=== PATIENT | male | born 1940 | race Caucasian/White ===

== ENCOUNTER → 2017-02-01 | Outpatient (CLI) | payer MEDICARE ==
[~2017-02-01] MED LIST: ALLO300T PO; ATEN25TA PO; CLIN300C93 PO; DIGO125T PO; FURO40TA6 PO; HYDR-3138 PO; MACI10TA PO; METF100010 PO; POTA10TA31 PO; POTA10TA5 PO; TORS20TA PO; TORS20TA2 PO; WARF10TA6 PO; WARF7.5T6 PO
== END | disposition home or self-care (01) ==
LOC: CFH 10:20
PROVIDERS: ATTEND Internal Medicine Cardiovascular Disease
DX: I08.3 Combined rheumatic disorders of mitral, aortic and tricuspid valves (principal); I48.91 Unspecified atrial fibrillation
CPT/HCPCS: 93306

== ENCOUNTER → 2017-06-01 | Outpatient (CLI) | payer MEDICARE ==
[~2017-06-01] MED LIST changes: +CLIN300C8 PO; -CLIN300C93 PO; -HYDR-3138 PO; +HYDR-3237 PO
== END | disposition home or self-care (01) ==
LOC: WOUND 09:17
PROVIDERS: ATTEND Internal Medicine
DX: S51.801A Unspecified open wound of right forearm, initial encounter (principal); E11.9 Type 2 diabetes mellitus without complications; G47.30 Sleep apnea, unspecified; I48.91 Unspecified atrial fibrillation; I27.29 Other secondary pulmonary hypertension; Z79.01 Long term (current) use of anticoagulants; Z95.0 Presence of cardiac pacemaker; Z98.49 Cataract extraction status, unspecified eye; Z87.891 Personal history of nicotine dependence; X58.XXXA Exposure to other specified factors, initial encounter; Y93.89 Activity, other specified; Y92.89 Other specified places as the place of occurrence of the external cause; Y99.8 Other external cause status
CPT/HCPCS: G0463; WOU0463

== ENCOUNTER 2018-03-16 11:58 | Inpatient (IN) | payer MEDICARE ==
[~2018-03-16] VITALS: Ht 195.6 cm; Wt 91.9 kg
[~2018-03-16 11:58] MED LIST changes: +WARF10TA43 PO; -WARF10TA6 PO; +WARF7.5T46 PO; -WARF7.5T6 PO
[2018-03-16] MEDS ORDERED: SODIUM CHLORIDE 0.9% 1,000 ML IV ONE (12:11)
[2018-03-16] MEDS ORDERED: AMOX-291 PO (12:55)
[2018-03-16] MEDS ORDERED: FAMC500T33 PO (12:55)
[2018-03-16 13:14] LABS: ANION GAP 11 mmol/L (5-15); CALCIUM 8.4 mg/dL (8.5-10.1); CHLORIDE 105 mmol/L (98-107)
[2018-03-16 13:17] LABS: ALANINE AMINOTRANSFERASE 74 U/L (12-78); CREATININE 3.12 mg/dL (0.7-1.3)
[2018-03-16 13:19] LABS: PARTIAL THROMBOPLASTIN TIME 64 Seconds (25-31)
[2018-03-16 13:20] LABS: TROPONIN I 0.905 ng/mL (0.000-0.045)
[2018-03-16 13:30] LABS: INTERNATIONAL NORMALIZED RATIO > 12.00 (0.93-1.1); PROTHROMBIN TIME 125.4 Seconds (9.6-11.5)
[2018-03-16] MEDS ORDERED: ASPIRIN 81 MG TABLET CHEW PO ONE (13:30)
[2018-03-16] MEDS ORDERED: PHYTONADIONE 10 MG/ML, 1ML IM ONE (13:30)
[2018-03-16 13:31] LABS: MD YES; MEAN CORPUSCULAR HGB CONC 32.9 g/dL (33.2-36.2); MEAN PLATELET VOLUME 10.2 fL (7.4-10.4); PLATELET COUNT 301 x10^3/uL (130-400); RED CELL DISTRIBUTION WIDTH 24.4 % (9.4-14.8)
[2018-03-16 13:33] LABS: ALKALINE PHOSPHATASE 121 U/L (45-117); BAND#(MANUAL) 0.53 x10^3/uL; BANDS%(MANUAL) 2 % (0-7); BILIRUBIN,TOTAL 3.6 mg/dL (0.2-1.0); CREATINE KINASE, TOTAL 1746 U/L (39-308); LYMPH#(MANUAL) 0.79 x10^3/uL (1-3.4); LYMPHS% (MANUAL) 3 % (22-44); MONOS#(MANUAL) 1.05 x10^3/uL (0.3-2.7); MONOS% (MANUAL) 4 % (2-9); REACTIVE LYMPHS # (MANUAL) 0.26 x10^3/uL (0-0); REACTIVE LYMPHS % (MANUAL) 1 % (0-0); SEG#(MANUAL) 23.67 x10^3/uL (1.8-6.8); SEGS% (MANUAL) 90 % (42-75); TOTAL PROTEIN 6.2 g/dL (6.4-8.2)
[2018-03-16 13:34] LABS: ANISOCYTOSIS 2+; MICROCYTOSIS 1+; POLYCHROMASIA 1+
[2018-03-16 13:36] LABS: <PLATELET ESTIMATE> ADEQUATE; LARGE PLATELETS 2+
[2018-03-16] MEDS ORDERED: SODIUM CHLORIDE 0.9% 1,000ML IVBOLUS ONE (14:00)
[2018-03-16] MEDS ORDERED: PHYTONADIONE 5 MG TABLET PO ONE (14:00)
[2018-03-16] MEDS ORDERED: SODIUM BICARBONATE 8.4% 150 MEQ in DEXTROSE 5% 1,000 ML IV SCH (14:00)
[2018-03-16] MEDS ORDERED: PIPERACILLIN/TAZO/PMX 3.375GM 50 ML IV ONE (14:00)
[2018-03-16] MEDS ORDERED: PIPERACILLIN/TAZO/PMX 3.375GM 50 ML ONE (14:17)
[2018-03-16] MEDS ORDERED: GLUCAGON 1 MG IM PRN (15:00)
[2018-03-16] MEDS ORDERED: POLYETHYLENE GLYCOL 17 GM PACKET PO PRN (15:00)
[2018-03-16] MEDS ORDERED: BISACODYL 10 MG SUPP PR PRN (15:00)
[2018-03-16] MEDS ORDERED: DEXTROSE 4 GM TAB.CHEW PO PRN (15:00)
[2018-03-16] MEDS ORDERED: DEXTROSE 50%, 50ML SYRINGE IVPush PRN (15:00)
[2018-03-16] MEDS ORDERED: hydrALAzine 20 MG/ML, 1ML IVPush PRN (15:00)
[2018-03-16 15:25] VITALS: BP 103/68
[2018-03-16] MEDS: SODIUM CHLORIDE 0.9% 1,000 ML IV SCH ×2 (16:43→23:10)
[2018-03-16] MEDS ORDERED: VANCOMYCIN 2,000 MG in SODIUM CHLORIDE 0.9% 500 ML IV SCH (17:00)
[2018-03-16] MEDS ORDERED: PHARMACOKINETIC CONSULTATION MC ONE ×2 (17:00→22:30)
[2018-03-16] MEDS ORDERED: PHARMACOKINETIC MONITORING MC PRN ×2 (17:00→22:30)
[2018-03-16] MEDS ORDERED: VANCOMYCIN PER PHARMACY MC PRN ×2 (17:00→22:00)
[2018-03-16] MEDS: INSULIN LISPRO 100 UNITS/ML, PEN SQ-INSULIN SCH ×2 (17:53→23:08)
[2018-03-16 18:53] LABS: ALBUMIN 2.8 g/dL (3.4-5.0); ANION GAP 12 mmol/L (5-15); CHLORIDE 109 mmol/L (98-107); CREATININE 2.94 mg/dL (0.7-1.3)
[2018-03-16 19:05] LABS: INTERNATIONAL NORMALIZED RATIO 11.1 (0.93-1.1); PROTHROMBIN TIME 109.1 Seconds (9.6-11.5)
[2018-03-16] MEDS ORDERED: PIPERACILLIN/TAZO 2.25 GM in SODIUM CHLORIDE 0.9% 50 ML IV SCH (20:30)
[2018-03-16 20:33] VITALS: BP 112/67
[2018-03-16] MEDS ORDERED: ACYCLOVIR 800 MG TABLET PO SCH (21:00)
[2018-03-16] MEDS ORDERED: LORazepam 2 MG/ML, 1ML IVPush ONE (21:30)
[2018-03-16] MEDS: SODIUM CHLORIDE FLUSH 10ML SYR IVF SCH (21:38)
[2018-03-16] MEDS: PIPERACILLIN/TAZO/PMX 2.25GM 50 ML IV SCH (23:08)
[2018-03-17 01:20] LABS: MEAN CORPUSCULAR VOLUME 75.9 fL (81-97); MEAN PLATELET VOLUME 10.1 fL (7.4-10.4); PLATELET COUNT 318 x10^3/uL (130-400); RED BLOOD COUNT 6.98 x10^6/uL (4.38-5.82)
[2018-03-17 01:26] LABS: ALANINE AMINOTRANSFERASE 78 U/L (12-78); ALBUMIN 2.9 g/dL (3.4-5.0); ANION GAP 10 mmol/L (5-15); CALCIUM 7.9 mg/dL (8.5-10.1); CHLORIDE 110 mmol/L (98-107); CREATININE 2.99 mg/dL (0.7-1.3)
[2018-03-17 01:33] LABS: MD YES
[2018-03-17 01:41] LABS: ANISOCYTOSIS 2+; BANDS%(MANUAL) 3 % (0-7); LYMPH#(MANUAL) 0.53 x10^3/uL (1-3.4); LYMPHS% (MANUAL) 2 % (22-44); MICROCYTOSIS 1+; MONOS#(MANUAL) 1.07 x10^3/uL (0.3-2.7); MONOS% (MANUAL) 4 % (2-9); POLYCHROMASIA 1+; REACTIVE LYMPHS # (MANUAL) 0.27 x10^3/uL (0-0); REACTIVE LYMPHS % (MANUAL) 1 % (0-0); SEG#(MANUAL) 24.03 x10^3/uL (1.8-6.8); SEGS% (MANUAL) 90 % (42-75)
[2018-03-17 01:42] LABS: <PLATELET ESTIMATE> ADEQUATE; ALKALINE PHOSPHATASE 109 U/L (45-117); BILIRUBIN,TOTAL 3.9 mg/dL (0.2-1.0); CHOL/HDL RATIO 6.1; CHOLESTEROL, TOTAL 92 mg/dL (140-239); CREATINE KINASE, TOTAL 1769 U/L (39-308); HDL CHOL % 16 % (26-37); HDL CHOLESTEROL (DIRECT) 15 mg/dL (40-60); LARGE PLATELETS 1+; LDL CHOLESTEROL,CALCULATED 50 mg/dL (54-169); LDL/HDL RATIO 3.3 (0.5-3.0); TOTAL PROTEIN 6.1 g/dL (6.4-8.2); TOXIC GRAN 1+; TRIGLYCERIDES 136 mg/dL (50-200); VLDL CHOLESTEROL 27 mg/dL (0-25)
[2018-03-17 01:45] LABS: INTERNATIONAL NORMALIZED RATIO 5.16 (0.93-1.1); PROTHROMBIN TIME 51.5 Seconds (9.6-11.5)
[2018-03-17 01:59] VITALS: BP 112/60
[2018-03-17] MEDS: SODIUM CHLORIDE 0.9% 1,000 ML IV SCH ×2 (03:20→09:50)
[2018-03-17 03:24] LABS: TROPONIN I 0.784 ng/mL (0.000-0.045)
[2018-03-17] MEDS: PIPERACILLIN/TAZO/PMX 2.25GM 50 ML IV SCH ×4 (04:53→21:04)
[2018-03-17 05:08] LABS: MICROSCOPIC INDICATED
[2018-03-17 05:17] LABS: AMPHETAMINE SCREEN, URINE Negative (Negative); BARBITURATE SCREEN, URINE Negative (Negative); BENZODIAZEPINE SCREEN, URINE Negative (Negative); CANNABINOID SCREEN, URINE Negative (Negative); COCAINE SCREEN, URINE Negative (Negative); METHADONE SCREEN, URINE Negative (Negative); OPIATE SCREEN, URINE Negative (Negative)
[2018-03-17 05:20] LABS: CULTURE INDICATED? YES
[2018-03-17] MEDS: INSULIN LISPRO 100 UNITS/ML, PEN SQ-INSULIN SCH ×4 (07:00→21:00)
[2018-03-17 07:54] VITALS: BP 112/62
[2018-03-17] MEDS: ACYCLOVIR 800 MG TABLET PO SCH ×4 (09:48→21:05)
[2018-03-17] MEDS: SODIUM CHLORIDE FLUSH 10ML SYR IVF SCH ×2 (09:48→21:00)
[2018-03-17] MEDS ORDERED: PHARMACY MAY ADJ FOR RENAL FX MC PRN (12:00)
[2018-03-17 14:53] VITALS: BP 104/63
[2018-03-17] MEDS ORDERED: METOPROLOL 1 MG/ML, 5ML IVPush PRN (15:00)
[2018-03-17 20:47] VITALS: BP 117/59
[2018-03-17] MEDS: ACETAMINOPHEN 325 MG TABLET PO PRN (21:04)
[2018-03-17 22:02] LABS: BILIRUBIN, DIRECT 0.9 mg/dL (0.1-0.2)
[2018-03-17 22:03] LABS: BILIRUBIN,INDIRECT 2.1 mg/dL (0.0-2.0)
[2018-03-18] VITALS (8 sets, daily range): BP systolic 108–138; BP diastolic 54–69
[2018-03-18] MEDS: PIPERACILLIN/TAZO/PMX 2.25GM 50 ML IV SCH ×4 (04:12→23:09)
[2018-03-18 05:52] LABS: CHLORIDE 115 mmol/L (98-107)
[2018-03-18 05:56] LABS: MEAN CORPUSCULAR HGB CONC 32.9 g/dL (33.2-36.2); MEAN CORPUSCULAR VOLUME 76.2 fL (81-97); MEAN PLATELET VOLUME 9.7 fL (7.4-10.4); PLATELET COUNT 301 x10^3/uL (130-400); RED BLOOD COUNT 6.37 x10^6/uL (4.38-5.82); RED CELL DISTRIBUTION WIDTH 25.4 % (9.4-14.8)
[2018-03-18] MEDS: ACYCLOVIR 800 MG TABLET PO SCH ×5 (05:56→21:25)
[2018-03-18 06:05] LABS: ALANINE AMINOTRANSFERASE 64 U/L (12-78); ALBUMIN 2.5 g/dL (3.4-5.0); ALKALINE PHOSPHATASE 99 U/L (45-117); ANION GAP 8 mmol/L (5-15); BILIRUBIN,TOTAL 3.4 mg/dL (0.2-1.0); CREATINE KINASE, TOTAL 437 U/L (39-308); TOTAL PROTEIN 5.6 g/dL (6.4-8.2)
[2018-03-18 06:52] LABS: BASOPHILS # (AUTO) 0.05 x10^3/uL (0-0.1); BASOPHILS % (AUTO) 0 % (0-1); EOSINOPHILS # (AUTO) 0.05 x10^3/uL (0-0.4); EOSINOPHILS % (AUTO) 0 % (1-7); LYMPHOCYTES % (AUTO) 3 % (22-44); MD SCAN; MONOCYTES % (AUTO) 3 % (2-9); NEUTROPHILS # (AUTO) 18.34 x10^3/uL (1.8-6.8); NEUTROPHILS % (AUTO) 94 % (42-75)
[2018-03-18] MEDS: INSULIN LISPRO 100 UNITS/ML, PEN SQ-INSULIN SCH ×4 (07:00→21:24)
[2018-03-18 07:45] LABS: INTERNATIONAL NORMALIZED RATIO 2.42 (0.93-1.1); PROTHROMBIN TIME 24.5 Seconds (9.6-11.5)
[2018-03-18] MEDS: SODIUM CHLORIDE FLUSH 10ML SYR IVF SCH ×2 (10:21→21:25)
[2018-03-18] MEDS ORDERED: WARFARIN 5 MG TABLET PO-COUM SCH (18:00)
[2018-03-18] MEDS: VANCOMYCIN 2,000 MG in SODIUM CHLORIDE 0.9% 500 ML IV SCH (18:18)
[2018-03-18 19:39] LABS: INTERNATIONAL NORMALIZED RATIO 2.17 (0.93-1.1)
[2018-03-18] MEDS: ACETAMINOPHEN 325 MG TABLET PO PRN (21:25)
[2018-03-19] VITALS (13 sets, daily range): BP systolic 117–143; BP diastolic 53–73
[2018-03-19] MEDS: PIPERACILLIN/TAZO/PMX 2.25GM 50 ML IV SCH ×4 (04:45→22:56)
[2018-03-19] MEDS: ACYCLOVIR 800 MG TABLET PO SCH ×5 (04:45→22:52)
[2018-03-19 04:52] LABS: MEAN CORPUSCULAR HEMOGLOBIN 24.9 pg (27.5-34.5); MEAN CORPUSCULAR HGB CONC 32.5 g/dL (33.2-36.2); MEAN CORPUSCULAR VOLUME 76.6 fL (81-97); MEAN PLATELET VOLUME 9.6 fL (7.4-10.4); PLATELET COUNT 322 x10^3/uL (130-400); RED BLOOD COUNT 6.31 x10^6/uL (4.38-5.82)
[2018-03-19 04:53] LABS: INTERNATIONAL NORMALIZED RATIO 1.93 (0.93-1.1); PROTHROMBIN TIME 19.6 Seconds (9.6-11.5)
[2018-03-19 04:56] LABS: ALANINE AMINOTRANSFERASE 55 U/L (12-78); ALBUMIN 2.4 g/dL (3.4-5.0); ANION GAP 6 mmol/L (5-15); CALCIUM 8.1 mg/dL (8.5-10.1); CHLORIDE 115 mmol/L (98-107); CREATININE 1.81 mg/dL (0.7-1.3)
[2018-03-19 04:58] LABS: ALKALINE PHOSPHATASE 118 U/L (45-117); BILIRUBIN,TOTAL 3.2 mg/dL (0.2-1.0); TOTAL PROTEIN 5.7 g/dL (6.4-8.2)
[2018-03-19 05:08] LABS: MD YES
[2018-03-19 05:10] LABS: ANISOCYTOSIS 2+; BANDS%(MANUAL) 3 % (0-7); LYMPHS% (MANUAL) 6 % (22-44); MICROCYTOSIS 1+; MONOS#(MANUAL) 0.33 x10^3/uL (0.3-2.7); MONOS% (MANUAL) 2 % (2-9); POLYCHROMASIA 1+; SEG#(MANUAL) 14.86 x10^3/uL (1.8-6.8); SEGS% (MANUAL) 89 % (42-75)
[2018-03-19 05:11] LABS: <PLATELET ESTIMATE> ADEQUATE; LARGE PLATELETS 1+; TOXIC GRAN 1+
[2018-03-19] MEDS: INSULIN LISPRO 100 UNITS/ML, PEN SQ-INSULIN SCH ×4 (07:00→20:48)
[2018-03-19] MEDS: SODIUM CHLORIDE FLUSH 10ML SYR IVF SCH ×2 (09:15→20:44)
[2018-03-19] MEDS ORDERED: PHYTONADIONE 10 MG/ML, 1ML SQ ONE (10:30)
[2018-03-19] MEDS: SODIUM CHLORIDE 0.45% 1,000 ML IV SCH (11:38)
[2018-03-19 15:38] LABS: INTERNATIONAL NORMALIZED RATIO 1.93 (0.93-1.1); PROTHROMBIN TIME 19.6 Seconds (9.6-11.5)
[2018-03-20] VITALS (12 sets, daily range): BP systolic 107–134; BP diastolic 53–73
[2018-03-20] MEDS: ACYCLOVIR 800 MG TABLET PO SCH ×5 (04:44→21:13)
[2018-03-20] MEDS: PIPERACILLIN/TAZO/PMX 2.25GM 50 ML IV SCH ×4 (04:49→22:15)
[2018-03-20 05:23] LABS: HCT (SEDRATE) 49.6 % (39.2-51.8)
[2018-03-20 05:29] LABS: MEAN CORPUSCULAR HEMOGLOBIN 24.7 pg (27.5-34.5); MEAN CORPUSCULAR HGB CONC 32.4 g/dL (33.2-36.2); MEAN CORPUSCULAR VOLUME 76.4 fL (81-97); MEAN PLATELET VOLUME 9.4 fL (7.4-10.4); PLATELET COUNT 356 x10^3/uL (130-400); RED BLOOD COUNT 6.53 x10^6/uL (4.38-5.82); RED CELL DISTRIBUTION WIDTH 24.3 % (9.4-14.8)
[2018-03-20 05:35] LABS: ALBUMIN 2.4 g/dL (3.4-5.0); ALBUMIN 2.5 g/dL (3.4-5.0); ANION GAP 4 mmol/L (5-15); ANION GAP 5 mmol/L (5-15); CALCIUM 8.2 mg/dL (8.5-10.1); CALCIUM 8.5 mg/dL (8.5-10.1); CHLORIDE 116 mmol/L (98-107); CHLORIDE 117 mmol/L (98-107)
[2018-03-20 05:41] LABS: ALANINE AMINOTRANSFERASE 51 U/L (12-78); ALKALINE PHOSPHATASE 121 U/L (45-117); BILIRUBIN,TOTAL 3.4 mg/dL (0.2-1.0); CREATININE 1.31 mg/dL (0.7-1.3); TOTAL PROTEIN 5.9 g/dL (6.4-8.2)
[2018-03-20 05:46] LABS: ALANINE AMINOTRANSFERASE 50 U/L (12-78); ALKALINE PHOSPHATASE 123 U/L (45-117); BILIRUBIN, DIRECT 0.7 mg/dL (0.1-0.2); BILIRUBIN,INDIRECT 2.6 mg/dL (0.0-2.0); BILIRUBIN,TOTAL 3.3 mg/dL (0.2-1.0); CREATINE KINASE, TOTAL 85 U/L (39-308); CREATININE 1.33 mg/dL (0.7-1.3); INTERNATIONAL NORMALIZED RATIO 1.58 (0.93-1.1); PROTHROMBIN TIME 16.1 Seconds (9.6-11.5); TOTAL PROTEIN 5.7 g/dL (6.4-8.2)
[2018-03-20 05:52] LABS: BASOPHILS # (AUTO) 0.08 x10^3/uL (0-0.1); BASOPHILS % (AUTO) 1 % (0-1); EOSINOPHILS # (AUTO) 0.29 x10^3/uL (0-0.4); EOSINOPHILS % (AUTO) 2 % (1-7); LYMPHOCYTES # (AUTO) 0.52 x10^3/uL (1-3.4); LYMPHOCYTES % (AUTO) 3 % (22-44); MD SCAN; MONOCYTES # (AUTO) 0.47 x10^3/uL (0.2-0.8); MONOCYTES % (AUTO) 3 % (2-9); NEUTROPHILS # (AUTO) 14.57 x10^3/uL (1.8-6.8); NEUTROPHILS % (AUTO) 92 % (42-75)
[2018-03-20] MEDS: INSULIN LISPRO 100 UNITS/ML, PEN SQ-INSULIN SCH ×4 (07:00→21:11)
[2018-03-20] MEDS: SODIUM CHLORIDE 0.45% 1,000 ML IV SCH (09:13)
[2018-03-20] MEDS: SODIUM CHLORIDE FLUSH 10ML SYR IVF SCH ×2 (09:14→21:13)
[2018-03-20] MEDS: ALBUTEROL/IPRATROPIUM 2.5MG/0.5MG, 3 ML NPPB SCH ×3 (11:00→19:51)
[2018-03-20] MEDS ORDERED: ALBUTEROL/IPRATROPIUM 2.5MG/0.5MG, 3 ML NPPB PRN (11:00)
[2018-03-20] MEDS ORDERED: ALBUTEROL/IPRATROPIUM 2.5MG/0.5MG, 3 ML NEB SCH (11:00)
[2018-03-20] MEDS: DEXTROSE 5% 1,000 ML IV SCH ×2 (11:56→11:59)
[2018-03-20] MEDS: VANCOMYCIN 2,000 MG in SODIUM CHLORIDE 0.9% 500 ML IV SCH (17:50)
[2018-03-20] MEDS: FUROSEMIDE 20 MG/2 ML IV SCH (17:51)
[2018-03-20] MEDS: METOPROLOL TARTRATE 25 MG TABLET PO SCH (18:02)
[2018-03-20] MEDS ORDERED: DILTIAZEM 5 MG/ML, 5ML IVPush ONE (18:30)
[2018-03-20] MEDS ORDERED: FUROSEMIDE 20 MG/2 ML IV ONE (18:30)
[2018-03-20] MEDS ORDERED: DILTIAZEM 5 MG/ML, 10ML IVPush ONE (18:30)
[2018-03-21] VITALS (12 sets, daily range): BP systolic 107–135; BP diastolic 56–70
[2018-03-21] MEDS: PIPERACILLIN/TAZO/PMX 2.25GM 50 ML IV SCH ×4 (04:22→23:07)
[2018-03-21 04:35] LABS: MEAN CORPUSCULAR HEMOGLOBIN 24.6 pg (27.5-34.5); MEAN CORPUSCULAR HGB CONC 32.3 g/dL (33.2-36.2); MEAN CORPUSCULAR VOLUME 76.3 fL (81-97); MEAN PLATELET VOLUME 9.6 fL (7.4-10.4); PLATELET COUNT 373 x10^3/uL (130-400); RED BLOOD COUNT 6.74 x10^6/uL (4.38-5.82); RED CELL DISTRIBUTION WIDTH 24.4 % (9.4-14.8)
[2018-03-21 04:40] LABS: INTERNATIONAL NORMALIZED RATIO 1.46 (0.93-1.1); PROTHROMBIN TIME 14.9 Seconds (9.6-11.5)
[2018-03-21 04:44] LABS: ANION GAP 7 mmol/L (5-15); CALCIUM 8.7 mg/dL (8.5-10.1); CHLORIDE 114 mmol/L (98-107); CREATININE 1.51 mg/dL (0.7-1.3)
[2018-03-21 04:51] LABS: BASOPHILS # (AUTO) 0.28 x10^3/uL (0-0.1); BASOPHILS % (AUTO) 1 % (0-1); EOSINOPHILS # (AUTO) 0.03 x10^3/uL (0-0.4); EOSINOPHILS % (AUTO) 0 % (1-7); LYMPHOCYTES # (AUTO) 0.44 x10^3/uL (1-3.4); LYMPHOCYTES % (AUTO) 2 % (22-44); MD SCAN; MONOCYTES # (AUTO) 0.99 x10^3/uL (0.2-0.8); MONOCYTES % (AUTO) 5 % (2-9); NEUTROPHILS # (AUTO) 17.78 x10^3/uL (1.8-6.8); NEUTROPHILS % (AUTO) 91 % (42-75)
[2018-03-21] MEDS: ACYCLOVIR 800 MG TABLET PO SCH ×5 (06:06→21:36)
[2018-03-21] MEDS: METOPROLOL TARTRATE 25 MG TABLET PO SCH ×2 (06:07→17:15)
[2018-03-21] MEDS: ALBUTEROL/IPRATROPIUM 2.5MG/0.5MG, 3 ML NPPB SCH ×4 (06:28→20:30)
[2018-03-21] MEDS ORDERED: PHYTONADIONE 10 MG/ML, 1ML SQ ONE (08:30)
[2018-03-21] MEDS: FUROSEMIDE 20 MG/2 ML IV SCH ×2 (08:58→17:15)
[2018-03-21] MEDS: INSULIN LISPRO 100 UNITS/ML, PEN SQ-INSULIN SCH ×4 (08:59→21:37)
[2018-03-21] MEDS: SODIUM CHLORIDE FLUSH 10ML SYR IVF SCH ×2 (09:05→21:36)
[2018-03-21] MEDS: DIGOXIN 0.125 MG TABLET PO SCH (09:30)
[2018-03-21 11:34] LABS: CLOSTRIDIUM DIFFICILE ANTIGEN NEGATIVE; CLOSTRIDIUM DIFFICILE TOXIN NEGATIVE (Negative)
[2018-03-22 02:32] VITALS: BP 121/61
[2018-03-22] MEDS: PIPERACILLIN/TAZO/PMX 2.25GM 50 ML IV SCH ×2 (04:48→10:58)
[2018-03-22 04:56] LABS: MEAN CORPUSCULAR HEMOGLOBIN 25.1 pg (27.5-34.5); MEAN CORPUSCULAR HGB CONC 32.7 g/dL (33.2-36.2); MEAN CORPUSCULAR VOLUME 76.8 fL (81-97); MEAN PLATELET VOLUME 9.6 fL (7.4-10.4); PLATELET COUNT 322 x10^3/uL (130-400); RED BLOOD COUNT 6.34 x10^6/uL (4.38-5.82); RED CELL DISTRIBUTION WIDTH 24.4 % (9.4-14.8)
[2018-03-22 05:04] LABS: INTERNATIONAL NORMALIZED RATIO 1.28 (0.93-1.1); PROTHROMBIN TIME 13.1 Seconds (9.6-11.5)
[2018-03-22 05:07] LABS: ANION GAP 6 mmol/L (5-15); CALCIUM 9.1 mg/dL (8.5-10.1); CHLORIDE 112 mmol/L (98-107); CREATININE 1.53 mg/dL (0.7-1.3)
[2018-03-22 05:15] LABS: BASOPHILS # (AUTO) 0.07 x10^3/uL (0-0.1); BASOPHILS % (AUTO) 0 % (0-1); EOSINOPHILS # (AUTO) 0.09 x10^3/uL (0-0.4); EOSINOPHILS % (AUTO) 1 % (1-7); LYMPHOCYTES # (AUTO) 0.53 x10^3/uL (1-3.4); LYMPHOCYTES % (AUTO) 3 % (22-44); MD SCAN; MONOCYTES # (AUTO) 0.68 x10^3/uL (0.2-0.8); MONOCYTES % (AUTO) 4 % (2-9); NEUTROPHILS # (AUTO) 14.45 x10^3/uL (1.8-6.8); NEUTROPHILS % (AUTO) 91 % (42-75)
[2018-03-22 05:42] VITALS: BP 123/64
[2018-03-22] MEDS: METOPROLOL TARTRATE 25 MG TABLET PO SCH ×2 (05:44→21:45)
[2018-03-22] MEDS: ACYCLOVIR 800 MG TABLET PO SCH ×5 (05:44→21:44)
[2018-03-22] MEDS ORDERED: VANCOMYCIN 2,000 MG in SODIUM CHLORIDE 0.9% 500 ML IV SCH (06:00)
[2018-03-22] MEDS: ALBUTEROL/IPRATROPIUM 2.5MG/0.5MG, 3 ML NPPB SCH ×4 (06:55→19:13)
[2018-03-22] MEDS: INSULIN LISPRO 100 UNITS/ML, PEN SQ-INSULIN SCH ×4 (07:00→21:45)
[2018-03-22 07:39] VITALS: BP 112/58
[2018-03-22] MEDS: FUROSEMIDE 20 MG/2 ML IV SCH ×2 (08:30→16:48)
[2018-03-22] MEDS: SODIUM CHLORIDE FLUSH 10ML SYR IVF SCH ×2 (08:31→21:44)
[2018-03-22] MEDS: DIGOXIN 0.125 MG TABLET PO SCH (08:32)
[2018-03-22] MEDS ORDERED: FENTANYL PF 100 MCG/2ML ONE ×2 (09:28→09:29)
[2018-03-22] MEDS ORDERED: MIDAZOLAM 1 MG/ML, 5ML ONE (09:29)
[2018-03-22] MEDS ORDERED: FLUMAZENIL 0.1 MG/1 ML, 5ML ONE (09:29)
[2018-03-22] MEDS ORDERED: NALOXONE 1 MG/ML, 2ML ONE (09:29)
[2018-03-22] MEDS ORDERED: LIDOCAINE-MPF 2%, 2ML ONE (09:49)
[2018-03-22 13:39] VITALS: BP 123/63
[2018-03-22] MEDS: PIPERACILLIN/TAZO/PMX 3.375GM 50 ML IV SCH ×2 (16:48→21:45)
[2018-03-22 20:11] VITALS: BP 125/62
[2018-03-22 21:37] VITALS: BP 138/64
[2018-03-22] MEDS: ACETAMINOPHEN 325 MG TABLET PO PRN (22:52)
[2018-03-23 00:49] VITALS: BP 129/64
[2018-03-23 05:09] LABS: MEAN CORPUSCULAR HGB CONC 32.6 g/dL (33.2-36.2); MEAN CORPUSCULAR VOLUME 76.9 fL (81-97); MEAN PLATELET VOLUME 9.6 fL (7.4-10.4); PLATELET COUNT 338 x10^3/uL (130-400); RED BLOOD COUNT 6.53 x10^6/uL (4.38-5.82); RED CELL DISTRIBUTION WIDTH 25.6 % (9.4-14.8)
[2018-03-23 05:10] LABS: INTERNATIONAL NORMALIZED RATIO 1.28 (0.93-1.1); PROTHROMBIN TIME 13.1 Seconds (9.6-11.5)
[2018-03-23 05:15] LABS: ANION GAP 7 mmol/L (5-15); CALCIUM 9.2 mg/dL (8.5-10.1); CHLORIDE 114 mmol/L (98-107)
[2018-03-23 05:33] LABS: CREATININE 1.58 mg/dL (0.7-1.3)
[2018-03-23] MEDS: PIPERACILLIN/TAZO/PMX 3.375GM 50 ML IV SCH ×4 (05:46→22:48)
[2018-03-23 05:50] LABS: BASOPHILS # (AUTO) 0.03 x10^3/uL (0-0.1); BASOPHILS % (AUTO) 0 % (0-1); EOSINOPHILS # (AUTO) 0.14 x10^3/uL (0-0.4); EOSINOPHILS % (AUTO) 1 % (1-7); LYMPHOCYTES # (AUTO) 0.71 x10^3/uL (1-3.4); LYMPHOCYTES % (AUTO) 5 % (22-44); MD SCAN; MONOCYTES # (AUTO) 0.45 x10^3/uL (0.2-0.8); MONOCYTES % (AUTO) 3 % (2-9); NEUTROPHILS % (AUTO) 92 % (42-75)
[2018-03-23 05:55] VITALS: BP 132/72
[2018-03-23] MEDS: ACYCLOVIR 800 MG TABLET PO SCH ×5 (05:58→20:58)
[2018-03-23] MEDS: METOPROLOL TARTRATE 25 MG TABLET PO SCH ×2 (05:58→18:12)
[2018-03-23] MEDS: ALBUTEROL/IPRATROPIUM 2.5MG/0.5MG, 3 ML NPPB SCH ×4 (07:00→19:15)
[2018-03-23 07:42] VITALS: BP 127/69
[2018-03-23] MEDS: INSULIN LISPRO 100 UNITS/ML, PEN SQ-INSULIN SCH ×4 (08:13→20:53)
[2018-03-23] MEDS: FUROSEMIDE 20 MG/2 ML IV SCH (08:13)
[2018-03-23] MEDS: SODIUM CHLORIDE FLUSH 10ML SYR IVF SCH ×2 (08:14→20:53)
[2018-03-23] MEDS: DIGOXIN 0.125 MG TABLET PO SCH (08:14)
[2018-03-23 12:53] VITALS: BP 142/64
[2018-03-23] MEDS ORDERED: DIGOXIN 0.25 MG/ML, 2ML IVPush ONE (13:30)
[2018-03-23] MEDS ORDERED: VANCOMYCIN 2,000 MG in SODIUM CHLORIDE 0.9% 500 ML IV SCH (17:00)
[2018-03-23 19:10] VITALS: BP 129/63
[2018-03-24 00:01] VITALS: BP 135/65
[2018-03-24] MEDS: METOPROLOL TARTRATE 25 MG TABLET PO SCH ×2 (00:28→05:05)
[2018-03-24 05:02] VITALS: BP 131/58
[2018-03-24] MEDS: PIPERACILLIN/TAZO/PMX 3.375GM 50 ML IV SCH ×3 (05:05→17:30)
[2018-03-24] MEDS: ACYCLOVIR 800 MG TABLET PO SCH ×5 (05:05→21:02)
[2018-03-24 05:53] LABS: MEAN CORPUSCULAR HEMOGLOBIN 24.8 pg (27.5-34.5); MEAN CORPUSCULAR HGB CONC 32.1 g/dL (33.2-36.2); MEAN CORPUSCULAR VOLUME 77.4 fL (81-97); MEAN PLATELET VOLUME 9.6 fL (7.4-10.4); PLATELET COUNT 304 x10^3/uL (130-400); RED BLOOD COUNT 6.57 x10^6/uL (4.38-5.82); RED CELL DISTRIBUTION WIDTH 25.5 % (9.4-14.8)
[2018-03-24 05:58] LABS: INTERNATIONAL NORMALIZED RATIO 1.36 (0.93-1.1); PROTHROMBIN TIME 13.9 Seconds (9.6-11.5)
[2018-03-24 06:01] LABS: ANION GAP 6 mmol/L (5-15); CHLORIDE 115 mmol/L (98-107); CREATININE 1.58 mg/dL (0.7-1.3)
[2018-03-24 06:03] LABS: VANCOMYCIN,RANDOM 20.1 mcg/mL
[2018-03-24 06:10] LABS: BASOPHILS # (AUTO) 0.06 x10^3/uL (0-0.1); BASOPHILS % (AUTO) 0 % (0-1); EOSINOPHILS % (AUTO) 1 % (1-7); LYMPHOCYTES # (AUTO) 0.56 x10^3/uL (1-3.4); LYMPHOCYTES % (AUTO) 4 % (22-44); MD SCAN; MONOCYTES # (AUTO) 0.68 x10^3/uL (0.2-0.8); MONOCYTES % (AUTO) 5 % (2-9); NEUTROPHILS % (AUTO) 91 % (42-75)
[2018-03-24] MEDS: ALBUTEROL/IPRATROPIUM 2.5MG/0.5MG, 3 ML NPPB SCH ×4 (07:00→18:40)
[2018-03-24 07:11] VITALS: BP 135/69
[2018-03-24] MEDS ORDERED: FUROSEMIDE 20 MG/2 ML IV SCH (09:00)
[2018-03-24] MEDS: INSULIN LISPRO 100 UNITS/ML, PEN SQ-INSULIN SCH ×4 (09:06→21:03)
[2018-03-24] MEDS: DIGOXIN 0.125 MG TABLET PO SCH (09:06)
[2018-03-24] MEDS: SODIUM CHLORIDE FLUSH 10ML SYR IVF SCH ×2 (09:07→21:00)
[2018-03-24 14:42] VITALS: BP 114/56
[2018-03-24 19:33] VITALS: BP 122/61
[2018-03-24] MEDS ORDERED: FUROSEMIDE 40 MG/4 ML IV ONE (21:00)
[2018-03-24] MEDS ORDERED: POTASSIUM CHLORIDE 20 MEQ TAB.ER.PRT PO ONE (21:00)
[2018-03-24] MEDS: METOPROLOL TARTRATE 50 MG TABLET PO SCH (21:02)
[2018-03-25] MEDS: PIPERACILLIN/TAZO/PMX 3.375GM 50 ML IV SCH ×4 (00:37→20:58)
[2018-03-25 01:35] VITALS: BP 117/67
[2018-03-25 05:59] LABS: INTERNATIONAL NORMALIZED RATIO 1.3 (0.93-1.1); PROTHROMBIN TIME 13.3 Seconds (9.6-11.5)
[2018-03-25 06:01] LABS: ANION GAP 4 mmol/L (5-15); CALCIUM 9.1 mg/dL (8.5-10.1); CHLORIDE 114 mmol/L (98-107); CREATININE 1.57 mg/dL (0.7-1.3)
[2018-03-25 06:06] LABS: MEAN CORPUSCULAR HEMOGLOBIN 24.9 pg (27.5-34.5); MEAN CORPUSCULAR HGB CONC 32.5 g/dL (33.2-36.2); MEAN CORPUSCULAR VOLUME 76.8 fL (81-97); MEAN PLATELET VOLUME 9.2 fL (7.4-10.4); PLATELET COUNT 229 x10^3/uL (130-400); RED BLOOD COUNT 6.62 x10^6/uL (4.38-5.82)
[2018-03-25] MEDS: ACYCLOVIR 800 MG TABLET PO SCH ×5 (06:30→20:58)
[2018-03-25 07:11] VITALS: BP 116/66
[2018-03-25 07:19] LABS: BASOPHILS # (AUTO) 0.03 x10^3/uL (0-0.1); BASOPHILS % (AUTO) 0 % (0-1); EOSINOPHILS # (AUTO) 0.08 x10^3/uL (0-0.4); EOSINOPHILS % (AUTO) 1 % (1-7); LYMPHOCYTES # (AUTO) 0.55 x10^3/uL (1-3.4); LYMPHOCYTES % (AUTO) 4 % (22-44); MD SCAN; MONOCYTES # (AUTO) 0.31 x10^3/uL (0.2-0.8); MONOCYTES % (AUTO) 2 % (2-9); NEUTROPHILS % (AUTO) 94 % (42-75)
[2018-03-25] MEDS: ALBUTEROL/IPRATROPIUM 2.5MG/0.5MG, 3 ML NPPB SCH ×4 (07:45→20:00)
[2018-03-25] MEDS: METOPROLOL TARTRATE 50 MG TABLET PO SCH ×2 (08:39→20:58)
[2018-03-25] MEDS: INSULIN LISPRO 100 UNITS/ML, PEN SQ-INSULIN SCH ×4 (08:40→21:09)
[2018-03-25] MEDS: DIGOXIN 0.125 MG TABLET PO SCH (08:40)
[2018-03-25] MEDS: SODIUM CHLORIDE FLUSH 10ML SYR IVF SCH ×2 (08:41→21:00)
[2018-03-25 14:00] VITALS: BP 154/72
[2018-03-25] MEDS: VANCOMYCIN 2,000 MG in SODIUM CHLORIDE 0.9% 500 ML IV SCH (16:11)
[2018-03-25] MEDS ORDERED: VANCOMYCIN 2,000 MG in SODIUM CHLORIDE 0.9% 500 ML IV SCH (18:00)
[2018-03-25] MEDS ORDERED: WARFARIN 5 MG TABLET PO-COUM SCH (18:00)
[2018-03-25 19:13] VITALS: BP 130/65
[2018-03-26 00:56] VITALS: BP 128/58
[2018-03-26] MEDS: PIPERACILLIN/TAZO/PMX 3.375GM 50 ML IV SCH ×4 (02:37→21:03)
[2018-03-26 05:21] LABS: ANION GAP 3 mmol/L (5-15); CALCIUM 9.3 mg/dL (8.5-10.1); CHLORIDE 116 mmol/L (98-107); CREATININE 1.66 mg/dL (0.7-1.3); INTERNATIONAL NORMALIZED RATIO 1.35 (0.93-1.1)
[2018-03-26 05:25] LABS: MEAN CORPUSCULAR HEMOGLOBIN 25.1 pg (27.5-34.5); MEAN CORPUSCULAR HGB CONC 32.3 g/dL (33.2-36.2); MEAN CORPUSCULAR VOLUME 77.8 fL (81-97); MEAN PLATELET VOLUME 9.4 fL (7.4-10.4); PLATELET COUNT 242 x10^3/uL (130-400); RED BLOOD COUNT 6.76 x10^6/uL (4.38-5.82); RED CELL DISTRIBUTION WIDTH 25.6 % (9.4-14.8)
[2018-03-26] MEDS: ACYCLOVIR 800 MG TABLET PO SCH ×5 (05:39→21:03)
[2018-03-26 05:48] LABS: BASOPHILS # (AUTO) 0.02 x10^3/uL (0-0.1); BASOPHILS % (AUTO) 0 % (0-1); EOSINOPHILS # (AUTO) 0.12 x10^3/uL (0-0.4); EOSINOPHILS % (AUTO) 1 % (1-7); LYMPHOCYTES # (AUTO) 0.68 x10^3/uL (1-3.4); LYMPHOCYTES % (AUTO) 4 % (22-44); MD MORPH REVIEW ONLY; MONOCYTES # (AUTO) 0.29 x10^3/uL (0.2-0.8); MONOCYTES % (AUTO) 2 % (2-9); NEUTROPHILS # (AUTO) 16.78 x10^3/uL (1.8-6.8); NEUTROPHILS % (AUTO) 94 % (42-75)
[2018-03-26 05:49] LABS: ANISOCYTOSIS 2+; MICROCYTOSIS 1+; OVALOCYTES 1+; POLYCHROMASIA 1+
[2018-03-26 05:51] LABS: <PLATELET ESTIMATE> ADEQUATE; LARGE PLATELETS 1+
[2018-03-26 07:07] VITALS: BP 137/67
[2018-03-26] MEDS: ALBUTEROL/IPRATROPIUM 2.5MG/0.5MG, 3 ML NPPB SCH ×4 (07:54→18:23)
[2018-03-26] MEDS: INSULIN LISPRO 100 UNITS/ML, PEN SQ-INSULIN SCH ×4 (08:37→21:00)
[2018-03-26] MEDS: SODIUM CHLORIDE FLUSH 10ML SYR IVF SCH ×2 (08:38→21:00)
[2018-03-26] MEDS: DIGOXIN 0.125 MG TABLET PO SCH (08:38)
[2018-03-26] MEDS: METOPROLOL TARTRATE 50 MG TABLET PO SCH ×2 (08:38→21:03)
[2018-03-26] MEDS ORDERED: DEXTROSE 5% 500 ML IV SCH (10:00)
[2018-03-26 12:34] LABS: CULTURE INDICATED? YES; MICROSCOPIC INDICATED
[2018-03-26 14:00] VITALS: BP 120/61
[2018-03-26] MEDS ORDERED: FLUCONAZOLE 200 MG TABLET ONE (14:43)
[2018-03-26] MEDS: FLUCONAZOLE 100 MG TABLET PO SCH (14:47)
[2018-03-26] MEDS ORDERED: WARFARIN 5 MG TABLET PO-COUM ONE (18:00)
[2018-03-26 19:54] VITALS: BP 126/67
[2018-03-27 01:10] VITALS: BP 121/56
[2018-03-27] MEDS: PIPERACILLIN/TAZO/PMX 3.375GM 50 ML IV SCH ×2 (01:15→07:58)
[2018-03-27] MEDS: VANCOMYCIN 2,000 MG in SODIUM CHLORIDE 0.9% 500 ML IV SCH (01:56)
[2018-03-27 05:28] LABS: INTERNATIONAL NORMALIZED RATIO 1.37 (0.93-1.1); PROTHROMBIN TIME 14.2 Seconds (9.6-11.5)
[2018-03-27] MEDS: ACYCLOVIR 800 MG TABLET PO SCH ×4 (05:31→16:50)
[2018-03-27 06:50] VITALS: BP 119/67
[2018-03-27] MEDS: INSULIN LISPRO 100 UNITS/ML, PEN SQ-INSULIN SCH ×3 (07:00→16:00)
[2018-03-27] MEDS ORDERED: FLUCONAZOLE 200 MG TABLET ONE (07:22)
[2018-03-27] MEDS: METOPROLOL TARTRATE 50 MG TABLET PO SCH (07:57)
[2018-03-27] MEDS: SODIUM CHLORIDE FLUSH 10ML SYR IVF SCH (07:58)
[2018-03-27] MEDS: DIGOXIN 0.125 MG TABLET PO SCH (07:58)
[2018-03-27] MEDS: FLUCONAZOLE 100 MG TABLET PO SCH (07:59)
[2018-03-27] MEDS: ALBUTEROL/IPRATROPIUM 2.5MG/0.5MG, 3 ML NPPB SCH ×3 (08:00→15:00)
[2018-03-27] MEDS ORDERED: ERTAPENEM 1 GM in SODIUM CHLORIDE 0.9% 50 ML IV SCH (09:00)
[2018-03-27] MEDS ORDERED: HEPARIN 25,000 UNITS/500ML PMX 500 ML IV PRN (09:00)
[2018-03-27] MEDS ORDERED: HEPARIN 5,000 UNITS/ML, 1ML IV PRN (09:00)
[2018-03-27] MEDS ORDERED: morphine SULFATE 10 MG/ML, 1ML IVPush PRN (13:00)
[2018-03-27] MEDS ORDERED: MORPHINE SULFATE 4 MG/ML, 1ML IVPush ONE (17:00)
[2018-03-27] MEDS ORDERED: LORazepam 2 MG/ML, 1ML IVPush PRN (17:00)
[2018-03-27] MEDS ORDERED: SCOPOLAMINE PATCH, 1.5MG PATCH.TD72 TD PRN (17:00)
[2018-03-27] MEDS ORDERED: MORPHINE SULFATE 4 MG/ML, 1ML ONE (17:18)
== END 2018-03-28 13:59 | disposition expired | DRG 871 ==
LOC: ED 13:11 → EDIP 13:44 → 5SO 15:27 → 3NW 03-27 17:26
PROVIDERS: ADMIT Hospitalist; ATTEND Hospitalist
PROC: 5A09357 Assistance with Respiratory Ventilation, Less than 24 Consecutive Hours, Continuous Positive Airway Pressure (ICD-10-PCS; 2018-03-17)
PROC: 30233L1 Transfusion of Nonautologous Fresh Plasma into Peripheral Vein, Percutaneous Approach (ICD-10-PCS; principal; 2018-03-18)
PROC: 30233K1 Transfusion of Nonautologous Frozen Plasma into Peripheral Vein, Percutaneous Approach (ICD-10-PCS; 2018-03-18)
PROC: 5A09357 Assistance with Respiratory Ventilation, Less than 24 Consecutive Hours, Continuous Positive Airway Pressure (ICD-10-PCS; 2018-03-20)
PROC: 5A09357 Assistance with Respiratory Ventilation, Less than 24 Consecutive Hours, Continuous Positive Airway Pressure (ICD-10-PCS; 2018-03-21)
PROC: 0F9430Z Drainage of Gallbladder with Drainage Device, Percutaneous Approach (ICD-10-PCS; 2018-03-22)
PROC: 5A09357 Assistance with Respiratory Ventilation, Less than 24 Consecutive Hours, Continuous Positive Airway Pressure (ICD-10-PCS; 2018-03-22)
PROC: 0T9B70Z Drainage of Bladder with Drainage Device, Via Natural or Artificial Opening (ICD-10-PCS; 2018-03-26)
DX: A41.9 Sepsis, unspecified organism (principal); J96.91 Respiratory failure, unspecified with hypoxia; G93.41 Metabolic encephalopathy; I50.23 Acute on chronic systolic (congestive) heart failure; J18.9 Pneumonia, unspecified organism; N17.9 Acute kidney failure, unspecified; R17 Unspecified jaundice; D68.59 Other primary thrombophilia; E87.0 Hyperosmolality and hypernatremia; E87.4 Mixed disorder of acid-base balance; I13.0 Hypertensive heart and chronic kidney disease with heart failure and stage 1 through stage 4 chronic kidney disease, or unspecified chronic kidney disease; I42.9 Cardiomyopathy, unspecified; K80.12 Calculus of gallbladder with acute and chronic cholecystitis without obstruction; M62.82 Rhabdomyolysis; N13.30 Unspecified hydronephrosis; T83.83XA Hemorrhage due to genitourinary prosthetic devices, implants and grafts, initial encounter; B48.8 Other specified mycoses; R31.0 Gross hematuria; R33.8 Other retention of urine; N40.1 Benign prostatic hyperplasia with lower urinary tract symptoms; D75.1 Secondary polycythemia; B02.9 Zoster without complications; R65.20 Severe sepsis without septic shock; E11.22 Type 2 diabetes mellitus with diabetic chronic kidney disease; E11.65 Type 2 diabetes mellitus with hyperglycemia; E83.39 Other disorders of phosphorus metabolism; E86.1 Hypovolemia; G47.33 Obstructive sleep apnea (adult) (pediatric); I27.20 Pulmonary hypertension, unspecified; I48.2 Chronic atrial fibrillation; N18.9 Chronic kidney disease, unspecified; N25.0 Renal osteodystrophy; Y84.6 Urinary catheterization as the cause of abnormal reaction of the patient, or of later complication, without mention of misadventure at the time of the procedure; Z79.01 Long term (current) use of anticoagulants; Z51.5 Encounter for palliative care; Z87.891 Personal history of nicotine dependence; Z95.0 Presence of cardiac pacemaker; M10.9 Gout, unspecified; I49.5 Sick sinus syndrome; J40 Bronchitis, not specified as acute or chronic; R16.1 Splenomegaly, not elsewhere classified
CPT/HCPCS: 36415; 70450; 71045; 71250; 75989; 76700; 76770; 76775; 78227; 80048; 80053; 80061; 80076; 80162; 80202; 80307; 81001; 82040; 82140; 82247; 82248; 82550; 82962; 83036; 83605; 83690; 83735; 83880; 84100; 84145; 84443; 84484; 84550; 85025; 85520; 85610; 85651; 85730; 86140; 86850; 86900; 87015; 87040; 87070; 87075; 87086; 87106; 87116; 87205; 87206; 87324; 93005; 93306; 93976; 94640; 94660; G0378; J1335; J1644; J1940; J2250; J2270; J2543; J3010; J3370; J3430; J3490; J7070; J7620; 92523-GN; A9537; C9898; J1160; J1815; J2060; J2310; J7030; J7040; J7060; P9017